=== PATIENT | female | born 1965 | race Two or more races ===

== ENCOUNTER 2019-02-01 12:12 | Emergency (ER) | payer OTHER ==
[~2019-02-01] VITALS: Ht 154.9 cm; Wt 98.4 kg
[2019-02-01] MEDS ORDERED: METOPROLOL SUC100 MG PO (12:26)
[2019-02-01] MEDS ORDERED: PLAVIX75 MG PO (12:26)
[2019-02-01] MEDS ORDERED: HYDROCHLOROTHIA25 MG PO (12:27)
[2019-02-01] MEDS ORDERED: METFORMIN HCL500 M2 PO (12:27)
== END 2019-02-01 14:21 | disposition home or self-care (01) ==
LOC: ER 12:12
DX: G89.11 Acute pain due to trauma (principal); M25.561 Pain in right knee

== ENCOUNTER 2021-01-27 07:45 | Inpatient (IN) | payer OTHER ==
[~2021-01-27] VITALS: Ht 154.9 cm; Wt 103.0 kg
[~2021-01-27 07:45] MED LIST: HYDROCHLOROTHIA25 MG PO; METFORMIN HCL500 M2 PO; METOPROLOL SUC100 MG PO; PLAVIX75 MG PO
[2021-01-27] MEDS ORDERED: ZESTRIL20 MG PO (09:14)
[2021-01-27] MEDS ORDERED: HYDROCHLOROTHIA25 MG PO (09:47)
[2021-02-02] MEDS ORDERED: BACTRIM DS TAB1 EACH PO (06:17)
[2021-02-02] MEDS ORDERED: XARELTO10 MG PO (06:17)
[2021-02-02] MEDS ORDERED: OXYC1TAB9 PO (06:17)
[2021-02-02] MEDS ORDERED: INTEGRA PLUS C1 EACH PO (06:17)
== END 2021-02-02 18:47 | DRG 470 ==
LOC: SURH 01-31 07:02 → O/R 01-31 07:02 → SURH 01-31 07:45
PROVIDERS: ADMIT Orthopaedic Surgery Sports Medicine; ATTEND Orthopaedic Surgery Sports Medicine
PROC: 0SRC0J9 Replacement of Right Knee Joint with Synthetic Substitute, Cemented, Open Approach (ICD-10-PCS; principal; 2021-01-31)
DX: M17.11 Unilateral primary osteoarthritis, right knee (principal); E11.9 Type 2 diabetes mellitus without complications; I10 Essential (primary) hypertension

== ENCOUNTER 2021-05-23 06:25 | Day surgery (SDC) | payer OTHER ==
[~2021-05-23 06:25] MED LIST changes: +ADULT LOW DOSE81 M1 PO; +BACTRIM DS TAB1 EACH PO; +INTEGRA PLUS C1 EACH PO; +NORVASC5 MG PO; +OXYC1TAB9 PO; +XARELTO10 MG PO; +ZESTRIL20 MG PO
[2021-05-23] MEDS ORDERED: OXYC1TAB9 PO (11:09)
[2021-05-23] MEDS ORDERED: DUI500 PO (11:09)
== END 2021-05-23 13:00 | disposition home or self-care (01) ==
LOC: CIR.AMB 06:25
PROVIDERS: ATTEND Orthopaedic Surgery Sports Medicine
DX: M24.561 Contracture, right knee (principal); M24.661 Ankylosis, right knee; Z20.822 Contact with and (suspected) exposure to COVID-19